=== PATIENT | male | born 1950 | race Caucasian/White ===

== ENCOUNTER 2024-08-28 11:06 | Emergency (ER) | payer MEDICARE, SELFPAY ==
[2024-08-28 11:19] VITALS: BP 179/104
[2024-08-28 11:35] VITALS: BP 141/75; BMI 27.4
[2024-08-28] MEDS: TORADOL 15 MG IM ×2 (12:16→14:18)
[2024-08-28] MEDS: VALIUM 5 MG PO (12:16)
[2024-08-28 12:33] LABS: Urine Albumin 1+ (Neg - Trace); Urine Bilirubin Negative (Negative); Urine Character Clear (Clear); Urine Color Yellow; Urine Glucose Negative (Negative); Urine Ketone Negative (Negative); Urine Leukocyte Negative (Negative); Urine Nitrite Negative (Negative); Urine Occult Blood Negative (Negative); Urine Urobilinogen Negative (Neg - 1+); Urine pH 6.5 (5.0-9.0)
[2024-08-28 12:44] LABS: Urine Squamous Cell 0-2 /LPF (Few)
[2024-08-28 12:45] LABS: Urine Bacteria Few (Negative); Urine White Cell 0-2 /HPF (0-5)
--- NOTE | 2024-08-28 12:58 | ED.GENMED ---
History of Present Illness
General
Chief Complaint: Back Pain
Source: patient
Exam Limitations: none
Time Seen by Provider: 08/28/24 11:58
Nursing documentation reviewed up to this point in time: agreed with
History of Present Illness
History of Present Illness:
73-year-old male presenting to the emergency department today with concerns of back pain. He claims that he was lifting a lawnmower 4 days ago and had discomfort to the right low back since. Slightly worsening over the past few days. Denies any
change in bowel or bladder function denies any numbness or weakness. Some intermittent pain rating down the right leg. Denies abdominal pain chest pain or shortness of breath. Has had some pain in the past.
Past History
Past History
ED Past Medical History: Cancer (Thyroid cancer status post thyroid resection and radiation therapy in 1992), Hypercholesterolemia and Hypothyroidism
ED Past Surgical History: Orthopedic (Knee surgery) and Other (thyroid surgery )
Social History
Tobacco: Former smoker
Alcohol: Occasional
Personal:
Living: with family
Employment: Employed
Family History
Family History: Diabetes
Review of Systems
Review of Systems
Allergies reviewed?: Yes
All Other Systems: ROS reviewed and negative except as documented in HPI and ROS
Phy Exam
Physical Exam
Physical Exam:
GENERAL: Alert , in no apparent distress
EYE: pupils equal and reactive
NECK: Supple, no significant adenopathy.
ENT: o/p clr, mmm.
CARDIAC: Regular rate and rhythm .
LUNGS: Clear breath sounds bilaterally, no acute respiratory distress, no wheezes/rales/rhonchi
ABDOMEN: Soft, without focal tenderness, no r/g, no cvat
NEUROLOGICAL: Alert and oriented, no focal neuro deficits
SKIN: Warm and dry, skin intact.
MUSCULOSKELETAL: No edema, well perfused.
PSYCH: Normal and appropriate interaction.
Course
Orders/Labs/Results
Orders:
Orders
08/28/24 12:11
Diazepam [Valium] 5 mg PO NOW STA
Ketorolac [Toradol] 15 mg IM NOW STA
Lumbar Spine, 2 or 3 View [CR Lumbar Spine 2 Or 3 Views] Urgent
Comment:
Reason For Exam: low back pain
08/28/24 12:20
Urinalysis Reflex To Culture Urgent
Date Specimen was Collected: 08/28/24
Time Specimen was Collected: 12:14
Urine Microscopic Reflex Cult Urgent
08/28/24 14:06
Cyclobenzaprine HCl [Flexeril] 10 mg PO NOW STA
Ketorolac [Toradol] 15 mg IM NOW STA
Abnormal Lab Results
08/28/24
12:20
Urine RBC 3-6 A /HPF
(0-2)
Urine Bacteria (Reflex) Few A
(Negative)
Urine Albumin (Reflex) 1+ A
(Neg - Trace)
Vital Signs
Initial and Last Documented VS:
Initial Vital Signs
Temp Pulse Resp BP Pulse Ox
97.7 F 93 17 179/104 99
08/28/24 11:19 08/28/24 11:19 08/28/24 11:19 08/28/24 11:19 08/28/24 11:19
Last Documented Vital Signs
Temp Pulse Resp BP Pulse Ox
98.5 F 82 16 141/75 99
08/28/24 11:35 08/28/24 11:35 08/28/24 11:35 08/28/24 11:35 08/28/24 11:35
MDM/Problems Addressed
MDM/Problems Addressed:
74-year-old male presenting to the emergency department today with concerns of low back pain some radiation down the right leg over the past 4 days after lifting a lawnmower. Gradually worsening pain since. Tightness to the back and muscle spasm.
Denies any numbness weakness or changes in urination.
*Critical Care Note
Total Time (30-74mins, 75-104mins- exclusive of procedures): Not Applicable
ED Attending Note
-
Portions of this chart may have been created with voice recognition software.� Occasional wrong word or��sound alike� substitutions may have occurred due to the inherent limitations of voice recognition software.
Discharge Plan
Departure
Patient Disposition: Home (Routine Discharge)
Date of Disposition: 08/28/24
Time of Disposition: 15:37
Patient with high blood pressure during this ER visit?: No
Condition: Good
Covid-19: Not Applicable
Discharge Problem:
Low back pain
Instructions: Low Back Pain (DC)
Prescriptions:
New
cyclobenzaprine 10 mg tablet
10 mg PO HS PRN (Reason: muscle spasm) Qty: 7 0RF
meloxicam 15 mg tablet
15 mg PO DAILY Qty: 10 0RF
No Action
garlic 100 MG tablet
100 mg PO DAILY
ascorbate calcium (vitamin C) 500 MG tablet
500 mg PO DAILY
levothyroxine [Synthroid] 200 MCG tablet
250 mcg PO DAILY
coenzyme [id number] E 1 CAP capsule
1 cap PO DAILY
salmon oil-omega-3 fatty acids 500 MG capsule
1 cap PO DAILY
Glucosamine Sulf-Chondroitin 1 EACH capsule
2 cap PO DAILY
multivitamin [Daily Multiple] 1 EACH tablet
1 ea PO DAILY
Referrals:
Dave Kuhn MD [Active] - Follow up in 1 week
Cristy Evangelista DO [Family Provider] -
Activity Restrictions/Additional Instructions:
You came to the emergency department today with concerns of low back pain. Your x-ray did not show any emergent findings. This is likely soft tissue injury or mechanical type back pain. Please follow closely with your primary care doctor or the
back doctor over the next week or so. Return immediately for any worsening, new or concerning symptoms.
Interventions
Interventions:
*Risk Screen - Suicide Last Done: 08/28/24 11:21
*General Assessment Last Done: 08/28/24 11:21
*Neglect/Abuse Screening Last Done: 08/28/24 11:21
*ED- Fall Risk Assessment Last Done: 08/28/24 11:35
*ED COVID-19 Vaccine History Last Done: 08/28/24 11:21
ED-Musculoskeletal Assessment Last Done: 08/28/24 11:35
Discharge Date and Time
Print Language: NICARAGU[place]
[2024-08-28] MEDS: FLEXERIL 10 MG PO (14:18)
[2024-08-28 15:48] VITALS: BP 164/91
== END 2024-08-28 15:51 | disposition home or self-care (01) ==
LOC: EMR 11:06
PROVIDERS: Physician Assistant; EMERGENCY PHYSICIAN Emergency Medicine; FAMILY PHYSICIAN Family Medicine
DX: M54.50 Low back pain, unspecified (principal); M62.830 Muscle spasm of back; E89.0 Postprocedural hypothyroidism; E78.00 Pure hypercholesterolemia, unspecified; Z85.850 Personal history of malignant neoplasm of thyroid; Z87.891 Personal history of nicotine dependence
CPT/HCPCS: 96372; 99284; 72100; 81003; 81015